=== PATIENT | male | born 1990 | race African-American/Black ===

== ENCOUNTER 2017-12-12 13:52 | Emergency (ER) | payer MEDICAID, SELFPAY ==
[2017-12-12 14:19] VITALS: BP 152/75; PULSE 90; RESP 20; TEMP 36.8; O2SAT 98; BMI 25.9
--- NOTE | 2017-12-12 14:44 | HMH.EDUTC ---
[facility] [place] Clinical Impression: Hair follicle infection Disposition: Home, Self-Care Condition on Discharge: Good Additional Instructions: Keep area clean and dry Use cream as prescribed on area REturn if needed If area continues to worsen, gets larger, Redness speads or you see streaks, run a fever and chills go straight to ER Prescriptions: Mupirocin [Bactroban 2% Ointment 22gm tube] 1 applicatio TP BID #1 tube Time of Disposition: 14:59 Medical Decision Making - Medical Records Medical records reviewed: Yes: I reviewed the patient's medical records. Vital Signs: 12/12/17 14:19 Temperature 98.3 F Temperature Source Temporal Artery Scan Pulse Rate [Left Brachial] 90 Respiratory Rate 20 Blood Pressure [Left Arm] 152/75 Blood Pressure Mean [Left Arm] 100 Blood Pressure Source [Left Arm] Automatic Cuff Blood Pressure Position [Left Arm] Sitting 02 Sat by Pulse Oximetry 98 Oxygen Delivery Method Room Air - Tommy Inquiry Pt receiving controlled substance: No Tommy was queried for this patient: No [facility] [place] HPI - General Stated complaint: knot on lower stomach Mode of Arrival: Ambulatory Source of Information: Patient Limitations: No Limitations Description of Symptoms (Recalled from Triage Doc. by RN): c/o small knot under belly button HEENT Symptoms (Recalled from RN notes): No Resp Symptoms (Recalled from RN notes): No Skin Symptoms (Recalled from RN notes): Yes (knot under belly button) MS Symptoms (Recalled from RN notes): No Functional Status (Recalled from RN notes): n/a - History of Present Illness Provider Complaint: Patient state that he noticed a small bump like area in his pubic hair area and he was worried and wanted to get checked State that area is a little sore and about the size of needle head - Related Data Previous Rx's Medication Instructions Recorded Mupirocin [Bactroban 2% Ointment 1 applicatio TP BID #1 tube 12/12/17 22gm tube] Allergies Allergy/AdvReac Type Severity Reaction Status Date / Time No Known Allergies Allergy Unverified 10/19/17 14:58 - Worker's Comp Is this a Worker's Comp case?: No [facility] History I have reviewed the patient's past medical history: Yes Medical History: Denies:: Diabetes Mellitus Type 1, Diabetes Mellitus Type 2 Amputation: No Fractures: No - *Social History Smoking Status: Current every day smoker Tobacco Type: cigarettes Alcohol Intake: current Alcohol Intake Frequency:: a few times a month - Psychiatric History Expresses thoughts of harming self/others: None Suicide Plan Description: No Plan ROS Obtained: Yes All systems reviewed & no additional complaints Physical Exam - General General appearance: alert, in no apparent distress - ENT ENT exam: Present: normal exam, normal oropharynx, mucous membranes moist, TM's normal bilaterally, normal external ear exam - Respiratory Respiratory exam: Present: normal lung sounds bilaterally. Absent: respiratory distress - Cardiovascular Cardiovascular exam: Present: regular rate, normal rhythm. Absent: JVD - Abdominal Exam Abdominal exam: Present: soft, normal bowel sounds. Absent: distention, tenderness, guarding - Neurological Exam Neurological exam: Present: alert, oriented X3 - Other Other exam information: Patient had small pin sized red area/bump like area in pubic hair region that appeared to be like an infected hair. No swelling no streaks, no temp difference not hot
--- NOTE | 2017-12-12 14:50 | ED_ITS ---
[facility] [place]ression: Hair follicle infection Disposition: Home, Self-Care Condition on Discharge: Good Additional Instructions: Keep area clean and dry Use cream as prescribed on area REturn if needed If area continues to worsen, gets larger, Redness speads or you see streaks, run a fever and chills go straight to ER Prescriptions: Mupirocin [Bactroban 2% Ointment 22gm tube] 1 applicatio TP BID #1 tube Time of Disposition: 14:59 Medical Decision Making - Medical Records Medical records reviewed: Yes: I reviewed the patient's medical records. Vital Signs: 12/12/17 14:19 Temperature 98.3 F Temperature Source Temporal Artery Scan Pulse Rate [Left Brachial] 90 Respiratory Rate 20 Blood Pressure [Left Arm] 152/75 Blood Pressure Mean [Left Arm] 100 Blood Pressure Source [Left Arm] Automatic Cuff Blood Pressure Position [Left Arm] Sitting 02 Sat by Pulse Oximetry 98 Oxygen Delivery Method Room Air - Tommy Inquiry Pt receiving controlled substance: No Tommy was queried for this patient: No [facility] [place] - General Stated complaint: knot on lower stomach Mode of Arrival: Ambulatory Source of Information: Patient Limitations: No Limitations Description of Symptoms (Recalled from Triage Doc. by RN): c/o small knot under belly button HEENT Symptoms (Recalled from RN notes): No Resp Symptoms (Recalled from RN notes): No Skin Symptoms (Recalled from RN notes): Yes (knot under belly button) MS Symptoms (Recalled from RN notes): No Functional Status (Recalled from RN notes): n/a - History of Present Illness Provider Complaint: Patient state that he noticed a small bump like area in his pubic hair area and he was worried and wanted to get checked State that area is a little sore and about the size of needle head - Related Data Previous Rx's Medication Instructions Recorded Mupirocin [Bactroban 2% Ointment 1 applicatio TP BID #1 tube 12/12/17 22gm tube] Allergies Allergy/AdvReac Type Severity Reaction Status Date / Time No Known Allergies Allergy Unverified 10/19/17 14:58 - Worker's Comp Is this a Worker's Comp case?: No [facility] History I have reviewed the patient's past medical history: Yes Medical History: Denies:: Diabetes Mellitus Type 1, Diabetes Mellitus Type 2 Amputation: No Fractures: No - *Social History Smoking Status: Current every day smoker Tobacco Type: cigarettes Alcohol Intake: current Alcohol Intake Frequency:: a few times a month - Psychiatric History Expresses thoughts of harming self/others: None Suicide Plan Description: No Plan ROS Obtained: Yes All systems reviewed & no additional complaints Physical Exam - General General appearance: alert, in no apparent distress - ENT ENT exam: Present: normal exam, normal oropharynx, mucous membranes moist, TM's normal bilaterally, normal external ear exam - Respiratory Respiratory exam: Present: normal lung sounds bilaterally. Absent: respiratory distress - Cardiovascular Cardiovascular exam: Present: regular rate, normal rhythm. Absent: JVD - Abdominal Exam Abdominal exam: Present: soft, normal bowel sounds. Absent: distention, tenderness, guarding - Neurological Exam Neurological exam: Present: alert, oriented X3 - Other Other exam information:
[2017-12-12 15:09] VITALS: BP 152/75; PULSE 90; RESP 22; TEMP 37.1
== END 2017-12-12 15:09 | disposition home or self-care (01) ==
PROVIDERS: Emergency Provider Nurse Practitioner; Family Provider Family Medicine
DX: L73.9 Follicular disorder, unspecified (principal); F17.210 Nicotine dependence, cigarettes, uncomplicated
CPT/HCPCS: 99202

== ENCOUNTER 2020-10-26 16:24 | Emergency (ER) | payer OTHER, MEDICAID, SELFPAY ==
[2020-10-26 16:31] VITALS: BP 126/70; PULSE 77; RESP 18; TEMP 36.7; O2SAT 99; BMI 25.1
--- NOTE | 2020-10-26 16:36 | HMH.EDUTC ---
[facility] [place] Impression: Close exposure to COVID-19 virus Disposition: Home, Self-Care Condition on Discharge: Good Instructions: DI for COVID-19 (Suspected or Confirmed ), COVID-19: Testing and Tracing, Preventing the Spread of Coronavirus Discharge Instructions Additional Instructions: *Monitor Temp, Over the counter Motrin or Tylenol as directed/as needed Tylenol every 4 hours and Motrin every 6 hours (as long as your family doctor has told you that you can take it) for fever or pain. and straight to ER if unable to lower temp less than 101.0 after medication given *Warm salt water gargles may help to soothe the throat *Throat Lozenges *Warm fluids like tea with honey may help to soothe the throat *Sleep elevated *Humidifier/Vaporizer Follow up IMMEDIATELY for new or worsening symptoms or no Noticeable improvement over the next 48-72 hours. 911 for difficulty breathing or swallowing You were tested for today for COVID19 your test result should be back in the next 24-48 hours, you may call to the [facility] to see if your test results are back in the next 48 hours [phone] [facility] hours are 9am-9pm You was given a handout with instructions for Self Quarantine and Self isolation for while you wait on test results and what to do if they are positive If you are positive the Health Dept will be contacting you also Referrals: PCP,No [Primary Care Provider] - Forms: Work/School Release Time of Disposition: 16:38 Medical Decision Making - Tommy Inquiry Pt receiving controlled substance: No Tommy was queried for this patient: No Vital Signs: 10/26/20 16:31 Temperature 98.1 F Temperature Source Oral Pulse Rate [Radial] 77 Respiratory Rate 18 Blood Pressure [Right Arm] 126/70 Blood Pressure Mean [Right Arm] 88 Blood Pressure Source [Right Arm] Automatic Cuff Blood Pressure Position [Right Arm] Sitting 02 Sat by Pulse Oximetry 99 Oxygen Delivery Method Room Air Orders (Tests/Meds): ORDERS Category Date Time Status Covid-19 Nasal PCR ([facility]) Routine Lab 10/26/20 16:25 [place] [facility] [place] - General Stated complaint: covid exposure Time Seen by Provider: 10/26/20 16:36 Mode of Arrival: Ambulatory Source of Information: Patient Limitations: No Limitations Description of Symptoms (Recalled from Triage Doc. by RN): COVID EXPOSURE, NO SYMPTOMS HEENT Symptoms (Recalled from RN notes): No Resp Symptoms (Recalled from RN notes): No Skin Symptoms (Recalled from RN notes): No MS Symptoms (Recalled from RN notes): No Functional Status (Recalled from RN notes): WNL - History of Present Illness Provider Complaint: Patient state that he was around his brother over a week ago and he tested positive earlier today State that he is not having any symptoms but due to exposure wanted to get tested - Related Data Previous Rx's Medication Instructions Recorded Mupirocin [Bactroban 2% Ointment 1 applicatio TP BID #1 tube 12/12/17 22gm tube] Allergies Allergy/AdvReac Type Severity Reaction Status Date / Time No Known Allergies Allergy Unverified 10/19/17 14:58 - Worker's Comp Is this a Worker's Comp case?: No [facility] History - Hepatitis A Screen Drug use history?: No High risk sexual behaviors?: No History of sexually transmitted infection?: No Currently employed?: No Childcare worker?: No Do you have indoor plumbing?: Yes Do you have electricity?: Yes Attestation statement:: This patient has been screened for Hepatitis A risk factors. I have reviewed the patient's past medical history: Yes Medical History: Denies:: Diabetes Mellitus Type 1, Diabetes Mellitus Type 2 Amputation: No Fractures: No - Social History Smoking Status: Current every day smoker Tobacco Type: cigarettes Alcohol Intake: never Alcohol Intake Frequency:: a few times a month Occupational Status: employed Housing: house ROS Obtained: Yes All systems reviewed & no additional complaints, Yes Systems r
[2020-10-26 16:44] VITALS: BP 126/70; PULSE 77; RESP 18; TEMP 36.7; O2SAT 99
== END 2020-10-26 16:45 | disposition home or self-care (01) ==
PROVIDERS: Emergency Provider Nurse Practitioner
DX: Z20.828 Contact with and (suspected) exposure to other viral communicable diseases (principal); F17.210 Nicotine dependence, cigarettes, uncomplicated
CPT/HCPCS: 99201; U0003

== ENCOUNTER 2021-02-03 09:46 | Emergency (ER) | payer MEDICAID, SELFPAY ==
[2021-02-03 10:00] VITALS: BP 144/93; PULSE 92; RESP 14; TEMP 37.2; O2SAT 100; BMI 28.8
--- NOTE | 2021-02-03 10:03 | HMH.EDUTC ---
[facility] – [place] Disposition Clinical Impression: Exposure to COVID-19 virus Disposition: Home, Self-Care Condition on Discharge: Good Instructions: Preventing the Spread of Coronavirus Discharge Instructions Additional Instructions: Drink plenty of fluids. Take tylenol for pain or fever. Return if you begin to have difficulty breathing. Follow up with your regular doctor. GO TO THE ER FOR ANY WORSENING SYMPTOMS Referrals: PCP,No [Primary Care Provider] - Time of Disposition: 10:04 Medical Decision Making - Medical Records Medical records reviewed: No: I reviewed the patient's medical records. - Tommy Inquiry Pt receiving controlled substance: No Vital Signs: 02/03/21 10:00 02/03/21 10:09 Temperature 98.9 F 98 F Temperature Source Oral Pulse Rate 0 L Pulse Rate [Left] 92 H Respiratory Rate 14 14 Blood Pressure 000/00 L Blood Pressure [Left Arm] 144/93 H Blood Pressure Mean [Left Arm] 110 02 Sat by Pulse Oximetry 100 [facility] [place] HPI - General Stated complaint: cov test Time Seen by Provider: 02/03/21 10:00 - History of Present Illness Provider Complaint: He states that he was exposed to covid-19 at his job last week. He denies any symptoms at this time. - Related Data Previous Rx's Medication Instructions Recorded Mupirocin [Bactroban 2% Ointment 1 applicatio TP BID #1 tube 12/12/17 22gm tube] Allergies Allergy/AdvReac Type Severity Reaction Status Date / Time No Known Allergies Allergy Verified 02/03/21 09:59 [facility] History - Hepatitis A Screen Attestation statement:: This patient has been screened for Hepatitis A risk factors. I have reviewed the patient's past medical history: Yes Medical History: Denies:: Diabetes Mellitus Type 1, Diabetes Mellitus Type 2 Amputation: No Fractures: No - Social History Smoking Status: Current every day smoker Tobacco Type: cigarettes Alcohol Intake: never Alcohol Intake Frequency:: a few times a month Occupational Status: employed Housing: house ROS Obtained: Yes All systems reviewed & no additional complaints - Constitutional Constitutional: Reports system reviewed and no additional complaints, except as docu - Eyes Eyes: Reports system reviewed and no additional complaints, except as docu - ENT Ears, Nose, Mouth, and Throat: Reports system reviewed and no additional complaints, except as docu - Cardiovascular Cardiovascular: Reports system reviewed and no additional complaints, except as docu - Respiratory Respiratory: Reports system reviewed and no additional complaints, except as docu - Gastrointestinal Gastrointestingal: Reports: system reviewed and no additional complaints, except as docu Physical Exam - General General appearance: alert, in no apparent distress - Head Head exam: atraumatic, normocephalic, normal inspection - Eye Eye exam: Present: normal appearance, PERRL, EOMI - ENT ENT exam: Present: normal exam, normal oropharynx, mucous membranes moist, TM's normal bilaterally, normal external ear exam - Neck Neck exam: Present: normal inspection, full ROM, trachea midline. Absent: meningismus, lymphadenopathy - Chest Chest inspection: Present: normal inspection, symmetric chest wall rise. Absent: tenderness - Respiratory Respiratory exam: Present: normal lung sounds bilaterally. Absent: respiratory distress - Cardiovascular Cardiovascular exam: Present: regular rate, normal rhythm. Absent: JVD - Abdominal Exam Abdominal exam: Present: soft, normal bowel sounds. Absent: distention, tenderness, guarding - Extremities Exam Extremities exam: Present: normal inspection, full ROM, normal capillary refill. Absent: calf tenderness - Back Exam Back exam: Present: normal inspection. Absent: tenderness - Neurological Exam Neurological exam: Present: alert, oriented X3 - Psychiatric Psychiatric exam: Present: normal affect, normal mood - Skin Skin exam: [place]
[2021-02-03 10:09] VITALS: BP 000/00; PULSE 0; RESP 14; TEMP 36.6
== END 2021-02-03 10:08 | disposition home or self-care (01) ==
PROVIDERS: Emergency Provider Nurse Practitioner Family
DX: Z20.822 Contact with and (suspected) exposure to COVID-19 (principal)
CPT/HCPCS: 99202; G0463; U0003

== ENCOUNTER → 2021-11-27 09:29 | Outpatient (CLI) | payer MEDICAID, SELFPAY ==
[2021-11-28 12:39] LABS: Covid-19 Nasal PCR Sendout Lex INDETERMINATE
== END ==
PROVIDERS: Visit Provider Nurse Practitioner
DX: Z20.822 Contact with and (suspected) exposure to COVID-19 (principal)
CPT/HCPCS: C9803; U0004; U0005

== ENCOUNTER → 2021-12-01 10:26 | Outpatient (CLI) | payer MEDICAID, SELFPAY ==
[2021-12-02 06:36] LABS: Covid-19 Nasal PCR Sendout Lex POSITIVE
== END ==
PROVIDERS: PCP Family Medicine; Visit Provider Nurse Practitioner
DX: U07.1 COVID-19 (principal)
CPT/HCPCS: C9803; U0004; U0005

== ENCOUNTER 2022-04-24 23:41 | Emergency (ER) | payer OTHER, MEDICAID, SELFPAY ==
[2022-04-24 23:43] VITALS: BP 154/94; PULSE 84; RESP 17; TEMP 36.8; O2SAT 97; BMI 29.5
--- NOTE | 2022-04-25 00:53 | HMH.EDGENADL ---
ED Disposition Clinical Impression: Poison colleen dermatitis Disposition: Home, Self-Care Condition on Discharge: Good Additional Instructions: You will be given a 3 week course of steroids. Please take 40mg for 5 days, 20mg for the next five days, and 10mg for the remainder of the five days. You to monitor your condition for fever, other systemic symptoms. If your condition worsens or any other concerns arise, please return to the emergency department for reassessment. Otherwise, please follow-up with your primary care physician in 2 to 3 weeks. Prescriptions: predniSONE [Deltasone 20mg tablet] 20 mg PO DAILY 30 Days #18 tab Transmission Status: Received by [facility] Referrals: Provider,Referral, [Primary Care Provider] - - Critical Care Critical Care Time: No Attestation: On 04/24/22, the high probability of a clinically significant, sudden or life threatening deterioration of the following system(s) required my full and direct attention, intervention and personal management. The time I documented below is in addition to time spent performing reported procedures but includes the following listed in this critical care notation. Medical Decision Making - Medical Records Medical records reviewed: Yes: I reviewed the patient's medical records. - Tommy Inquiry Pt receiving controlled substance: No Vital Signs: 04/24/22 23:43 Temperature 98.2 F Temperature Source Oral Pulse Rate [Right] 84 Respiratory Rate 17 Blood Pressure [Right Arm] 154/94 H Blood Pressure Mean [Right Arm] 114 Blood Pressure Source [Right Arm] Automatic Cuff 02 Sat by Pulse Oximetry 97 Oxygen Delivery Method Room Air Orders (Tests/Meds): ED MEDICATIONS Discontinued Medications Generic Name Dose Route Start Last Admin Trade Name Soraida PRN Reason Stop Dose Admin Prednisone 60 mg 04/25/22 02:02 04/25/22 02:08 Prednisone 20mg Tab PO 04/25/22 02:03 60 mg ONCE ONE Administration Medical Decision Narrative: Patient is a healthy 2-year-old male presenting with a chief complaint of rash in between his digits on right hand after being exposed to outside yard work all week. Rash is pruritic, vesicular and in between digits. No evidence of cellulitis, rash is consistent with poison colleen dermatitis. Patient was treated with p.o. prednisone and given a prednisone taper. Counseled on supportive care at home, given return precautions and discharged with an outpatient follow-up. General Adult HPI - General Chief complaint: Allergic Reaction Stated complaint: allergic reaction;Hives and swollen fingers Time Seen by Provider: 04/25/22 00:50 Mode of Arrival: Family Vehicle Limitations: No Limitations Description of Symptoms (Recalled from ER Triage Doc. by RN): Pt c/o swelling to Bilat hands and hives to hands, t/o BUE, and anterior neck. 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 Blisters to fingers to R hand noted. Reports he took childrens benadryl last night but hives still present and he has not taken anything else thus far. - History of Present Illness HPI narrative: Juan F is a healthy 32-year-old male presenting with a chief complaint of vesicular rash in the interdigit spaces on the right hand. Patient states that for the past week, he has been clearing out weeds and working outside. Has been taking Benadryl without relief. Denies systemic symptoms. - Related Data Previous Rx's Medication Instructions Recorded Mupirocin [Bactroban 2% Ointment 1 applicatio TP BID #1 tube 12/12/17 22gm tube] predniSONE [Deltasone 20mg 20 mg PO DAILY 30 Days #18 tab 04/25/22 tablet] Allergies Allergy/AdvReac Type Severity Reaction Status Date / Time No Known Allergies Allergy Verified 02/03/21 09:59 [facility] History - Hepatitis A Screen Attestation statement:: This patient has been screened for Hepatitis A risk factors. Medical Histor
[2022-04-25 02:46] VITALS: BP 150/90; PULSE 89; RESP 18; TEMP 36.8; O2SAT 99
== END 2022-04-25 02:48 | disposition home or self-care (01) ==
PROVIDERS: Emergency Provider Emergency Medicine
DX: L23.7 Allergic contact dermatitis due to plants, except food (principal)
CPT/HCPCS: 99282